=== PATIENT | female | born 1945 | race Caucasian/White ===

== ENCOUNTER 2016-10-21 23:17 | Inpatient (IN) | payer MEDICARE ==
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
--- NOTE | ~2016-10-21 | DS ---
Discharge Summary [place] [id number] [place]. [address] NAME: RUSS GALO : 43 STATUS : DIS IN PAT#: [id number] AGE: 70 ADM/REG DATE : 10/22/16 MR#: [id number] REPORT SERV DATE: 11/06/16 DICTATED BY: JOSEFA KWOK DATE: 11/05/16 REPORT STATUS : Draft TRANSCRIBED BY: SCOTT DATE: 11/05/16 Data Collection from hospitalization DISCHARGE DIAGNOSES: 1. Acute hypercapnic respiratory failure. 2. Chronic respiratory failure - on chronic oxygen. 3. Type 2 diabetes mellitus. 4. Morbid obesity. 5. Restrictive lung disease. 6. Obstructive sleep apnea - noncompliant with CPAP. 7. Hypertension. 8. Depression. 9. History of abnormal PPD skin testing. 10.Diabetic nephropathy. 11.Diabetic neuropathy. 12.Chronic thrombocytopenia. 13.Stage III chronic kidney disease. 14.Anemia secondary to chronic kidney disease. 15.Hypothyroidism. 16.Gastroesophageal reflux disease. 17.Former smoker. CONSULTATIONS: 1. Jhonathan Colindres M.D. 2. Vazquez Church PA-C. PROCEDURES PERFORMED: None. MEDICATIONS: Tylenol 1000 mg every eight hours as needed for fever or pain; Artificial Tears, apply to both eyes twice a day as instructed; aspirin 81 mg daily; Colace 200 mg at bedtime; Zantac 150 mg with breakfast and supper; folic acid 1 mg daily; Neurontin 200 mg at bedtime; Guaifenesin [place] 600 mg twice a day; Isoniazid 900 mg every seven days as instructed; Levaquin 750 mg as instructed; Synthroid 150 mcg before breakfast; Lopressor 25 mg twice a day; Mycostatin apply to the intraabdominal fold topically twice a day; vitamin B6 50 mg daily; rifapentine as instructed; Zoloft 50 mg daily; Zocor 40 mg at bedtime; Deltasone 40 mg with breakfast, Brovana 15 mcg via inhaler twice a day; Pulmicort 1 mg via inhaler twice a day; DuoNeb 3 mL via inhaler every four hours while awake; glucagon 1 mg as needed; glucose tablets three tablets as needed; Robitussin 200 mg every six hours as needed for cough; Senokot one tablet twice a day as needed; Ultram 50 mg daily as needed; Aspercreme applied to sore muscles/joint topically daily as needed; DuoNeb 3 mL via inhaler every two hours as needed; Systane one drop daily; and Icy Hot one application topically with breakfast and supper. CONDITION ON DISCHARGE: Stable. DISPOSITION: The patient was discharged to [facility] on a regular diet with activities as instructed. Discharge Summary [address] [place]. [address] NAME: RUSS GALO : 43 STATUS : DIS IN PAT#: [id number] AGE: 70 ADM/REG DATE : 10/22/16 MR#: [id number] REPORT SERV DATE: 11/06/16 DICTATED BY: JOSEFA KWOK DATE: 11/05/16 REPORT STATUS : Draft TRANSCRIBED BY: SCOTT DATE: 11/05/16 HOSPITAL COURSE: This is a 70-year-old female who was transferred to the emergency room from [facility] at [facility] for lethargy and hypoxia. Apparently, her O2 saturations were in the 70s. She was on antibiotics for a respiratory illness that started a week prior to this admission, and according to the patient, she felt like she was getting better. She had no recollection of the events of the past 24 hours. In the emergency room, her ABGs were checked. She was presently on BiPAP, but was able to communicate. Her EKG showed what appeared to be atrial flutter and incomplete right bundle-branch block, left anterior fascicular block, and nonspecific ST-T changes at 119 beats per minute. She was admitted to the hospital at this time for further evaluation and treatment. Upon admission, she was felt to have acute on chronic respiratory failure with lethargy. She seemed to be at her baseline mentation. ABGs had improved. Pulmonary was consulted to manage her BiPAP. She was going to be restarted on DuoNeb and Pulmicort. Oral steroids would be provided for five days. We would check an ABG off BiPAP. We would use oxygen to keep her O2 saturation at least greater than 92% and hopefully that would only take about 2 to 3 liters. Incentive spirometry was to be performed every shift. Repeat EKG was going to be performed. She was going to be on prednisone. We would use NovoLog sliding scale insulin. For pain, we would consider Tylenol and use a small dose of tramadol once daily. Levothyroxine was going to be continued and we would check a TSH level. Ranitidine was continued as well as senna and Colace. Lovenox would be used for DVT prophylaxis. She is a DNR limited additional intervention code status. She was given reduced dose of gabapentin. We were not going to give her trazodone at this point and we would avoid medications that can contribute to the lethargy. She was seen by Dr. Jhonathan Colindres regarding atrial tachycardia versus atrial flutter. She has had no complaints of chest pain or angina. She denied palpitations or syncope. She does have morbid obesity and is dependent for care with activities of daily living. She denies orthopnea with the use of nocturnal CPAP for obstructive sleep apnea. She does have some chronic lower extremity edema and chronic venous stasis changes. She was now resting comfortably in bed with no complaints. Initial EKG on arrival looked like atrial tachycardia versus atypical atrial flutter with rapid ventricular response and variable conduction and ventricular response of 115 beats per minute. He recommended conservative medical management only with rate control. Rhythm control would be difficult with multiple medical problems. This appears to be in atrial tachycardia versus atypical atrial flutter. Aspirin was continued with DVT prophylaxis for now. Metoprolol would be recommended twice a day, and possible digoxin if needed for additional rate control. She is also seen by Vazquez Church regarding productive cough and acute respiratory failure. His impression included acute on chronic hypoxemic- hypercapnic respiratory failure and acute on chronic bronchitis. The patient has obstructive sleep apnea without CPAP compliance as well as morbid obesity. She had increased significantly with BiPAP therapy. She was going to be rested that day off the BiPAP machine. We would then provide this therapy for her at hour of sleep that evening. We would likely recheck arterial blood gas the following morning. With regard to the patient's acute on chronic bronchitis, we agreed with the current regimen of antibiotics and steroids. We would adjust nebulized medications accordingly and we would attempt to maximize her pulmonary toilets. With regard to her obstructive sleep apnea, she was not currently compliant with noninvasive positive pressure ventilation therapy. Moving forward, this may be a mobility that she would benefit from when she transfers home. The following day, she had no acute complaints. She had no palpitations, chest pain, or increased Discharge Summary [facility] [address] [place]. [address] NAME: RUSS GALO : 43 STATUS : DIS IN PAT#: [id number] AGE: 70 ADM/REG DATE : 10/22/16 MR#: [id number] REPORT SERV DATE: 11/06/16 DICTATED BY: JOSEFA KWOK DATE: 11/05/16 REPORT STATUS : Draft TRANSCRIBED BY: SCOTT DATE: 11/05/16 shortness of breath. O2 was continued as well as bronchodilators and oral prednisone. Her breathing seemed to be at baseline. Her altered mental status had resolved. Her heart rate was in the 90s on telemetry. Aspirin was continued. Medical management was being provided for rate control only. She was encouraged to increase her pulmonary toilet. On 10/24/2016, she was eating and drinking well. She was switched to oral Levaquin. Bronchodilators were continued. Discharge planning was performed. On 10/25/2016, she had no acute complaints. She was tachycardic. She had no Nicole catheter in place. Antibiotics were continued as well as bronchodilators and oral steroids. Discharge instructions were given. Due to her improved and stable condition, she was discharged to [facility] with the above-stated instructions. Information collected by: Janet Colorado I submit the above information as my discharge summary. ERIN/SCOTT Josefa Kwok M.D. / [id number] CC: Marya Hussein M.D. [facility]
--- NOTE | ~2016-10-21 | CN ---
Consultation Report [facility] [address] [place]. [address] NAME: RUSS GALO : 43 STATUS : ADM IN PAT#: [id number] AGE: 70 ADM/REG DATE : 10/22/16 MR#: [id number] REPORT SERV DATE: 10/23/16 DICTATED BY: JHONATHAN HODGES DATE: 10/22/16 REPORT STATUS : Draft TRANSCRIBED BY: MODL DATE: 10/22/16 CARDIOLOGY CONSULTATION DATE OF CONSULTATION: 10/22/2016 CONSULTATION REASON: Atrial tachycardia versus atrial flutter. HISTORY OF PRESENT ILLNESS: Ms. Galo is a 70-year-old female, resident of [facility], [place] with limited additional interventions, who is transferred for altered mental status and acute on chronic hypoxic with hypercarbic respiratory failure and respiratory acidosis. On arrival to the ER, she was lethargic with an initial pH of 7.2, CO2 of 122, and O2 of 88. She was treated with BiPAP and subsequently improved significantly to pH of 7.40 with CO2 of 63 and O2 of 66. With this, she had no complaints of chest pain or angina. She denies palpitations or syncope. She does have morbid obesity and is dependent for care with ADLs. She denies orthopnea with the use of a nocturnal CPAP for obstructive sleep apnea. She does have some chronic lower extremity edema and chronic venous stasis changes. She is now resting comfortably in bed with no complaints. Initial EKG on arrival look like in atrial tachycardia versus in atypical atrial flutter with RVR and a variable conduction and a ventricular response of 115 beats per minute. REVIEW OF SYSTEMS: Pertinent positives and negatives as outlined above, all others negative. PAST MEDICAL HISTORY: 1. Chronic hypoxic respiratory failure, on chronic oxygen supplementation. 2. COPD. 3. Morbid obesity. 4. Obstructive sleep apnea. 5. Hypertension. 6. Diabetes mellitus type 2. 7. Stage II chronic kidney disease, solitary kidney, status post right nephrectomy. 8. Depression. 9. History of abnormal PPD skin testing. MEDICATIONS: Her current home medications are: 1. Aspirin 81 mg daily. 2. Pulmicort as directed. 3. Gabapentin as directed. 4. Guaifenesin as directed. 5. Robitussin as directed. 6. NovoLog insulin. 7. Isoniazid as directed. 8. Synthroid 50 mcg daily. 9. Vitamin B6 supplementation. Consultation Report [facility] [address] [place]. [address] NAME: RUSS GALO : 43 STATUS : ADM IN PAT#: [id number] AGE: 70 ADM/REG DATE : 10/22/16 MR#: [id number] REPORT SERV DATE: 10/23/16 DICTATED BY: JHONATHAN HODGES DATE: 10/22/16 REPORT STATUS : Draft TRANSCRIBED BY: SCOTT DATE: 10/22/16 10.Nystatin topical. 11.Priftin 600 mg once weekly. 12.Zocor 40 mg daily. 13.Zoloft as directed. 14.Zantac b.i.d. 15.Senokot b.i.d. 16.Tramadol 50 mg p.r.n. 17.Trazodone 50 mg q.h.s. 18.Azithromycin as directed. 19.Ceftriaxone as directed. ALLERGIES: INCLUDE LISINOPRIL, WHICH CAUSES ACUTE RENAL FAILURE AND DIPHENHYDRAMINE, WHICH CAUSES ALTERED MENTAL STATUS. SOCIAL HISTORY: She is a resident of [facility]. She is dependent with ADLs due to her morbid obesity and chronic oxygen dependence. She does not currently use tobacco products or illegal drugs. FAMILY HISTORY: No significant family history of premature CAD, cardiomyopathy, or sudden . PHYSICAL EXAMINATION: VITALS: Temperature is afebrile, pulse is 100, respirations 18, blood pressure 120/80. GENERAL: Obese female who is resting comfortably in bed and in no acute distress. HEENT: Sclerae anicteric, mucous membranes moist and without lesions. NECK: No jugular venous distention. No hepatojugular reflux, carotid upstrokes 2+ and symmetric, there are no carotid or subclavian bruit. LUNGS: Moderately decreased breath sounds throughout with no wheezes or crackles. CARDIOVASCULAR: Irregular with distant S1 and S2. No audible S3. No audible murmurs. No parasternal lift. PMI is not palpable. ABDOMEN: Obese, soft, and nontender. Bowel sounds are positive and normoactive. PULSES: Radial and dorsalis pedis pulses are 2+ and symmetric. EXTREMITIES: Warm and with 1-2+ bilateral edema and chronic venous stasis changes. SKIN: No clubbing or cyanosis, no rashes or lesions. IMPRESSION: 1. Atrial tachycardia versus atypical atrial flutter. 2. Acute on chronic hypoxic and hypercarbic respiratory failure. 3. Respiratory acidosis. 4. Morbid obesity. 5. Chronic obstructive pulmonary disease. 6. Obstructive sleep apnea. 7. Hypertension. 8. Diabetes mellitus type 2. 9. Chronic kidney disease, stage II, solitary kidney. Consultation Report [place] [id number] [place]. [address] NAME: RUSS GALO : 43 STATUS : ADM IN PAT#: [id number] AGE: 70 ADM/REG DATE : 10/22/16 MR#: [id number] REPORT SERV DATE: 10/23/16 DICTATED BY: JHONATHAN HODGES. DATE: 10/22/16 REPORT STATUS : Draft TRANSCRIBED BY: SCOTT DATE: 10/22/16 10.Cytopenia. 11.DO NOT RESUSCITATE with limited additional interventions. PLAN: Ms. Galo is now doing much better. Recommend conservative medical management only with rate control. Rhythm control would be difficult with multiple medical problems. This appears to be in atrial tachycardia versus in atypical atrial flutter. Continue aspirin with DVT prophylaxis for now. Recommend metoprolol twice daily and possible digoxin if needed for additional rate control. We will follow with you. REUBEN/SCOTT Jhonathan Hodges M.D. / [id number] CC: Josefa Kwok M.D.
--- NOTE | ~2016-10-21 | PUL ---
[facility] [address] [place]. [address] NAME: RUSS GALO : 43 STATUS : DIS IN PAT#: [id number] AGE: 70 ADM/REG DATE : 10/22/16 MR#: [id number] REPORT SERV DATE: 10/27/16 DICTATED BY: MILTON THORPE DATE: 10/27/16 REPORT STATUS : Draft TRANSCRIBED BY: MODL DATE: 10/27/16 PULMONARY FUNCTION TEST STUDY: Overnight pulse oximetry. FINDINGS: Total recording time is 7 hours 7 minutes. Mean pulse 95. Mean oxygen saturation 95.9%. Total time with an oxygen saturation of less than 88%, 7 minutes 38 seconds, 1.8% of the night. Upon review of the SpO2 curve, the patient has desaturation concerning for sleep apnea. INTERPRETATION: The patient has a positive study with nocturnal hypoxemia. However, outpatient consideration for sleep apnea may be necessary if clinically indicated. HFQ/MODL Milton Thrope MD / [id number] CC: Josefa Kwok M.D.
--- NOTE | ~2016-10-21 | HP ---
History And Physical [place] [id number] [facility] [place]. [address] NAME: RUSS JORDAN : 43 STATUS : ADM IN [facility]#: [id number] AGE: 70 ADM/REG DATE : 10/22/16 MR#: [id number] REPORT SERV DATE: 10/22/16 DICTATED BY: JOSEFA KWOK DATE: 10/22/16 REPORT STATUS : Draft TRANSCRIBED BY: MODSaba DATE: 10/22/16 DATE OF ADMISSION: 10/22/2016 CHIEF COMPLAINT: Altered mental status. HISTORY OF PRESENT ILLNESS: Ms. Jordan is a 70-year-old female, who was transferred to the [place] [facility] [place] for lethargy and hypoxia. Apparently her O2 sats were in the 70s. The patient was on antibiotics for a respiratory illness that started last week and according to the patient, she felt like she was getting better. She has no recollection of the events of the last 24 hours. In the ER, her initial ABG was 7.19, 122, 88, 45.7, and 95% on 4 L. Her last ABG was 7.406, 53.6, 66, and 94.2%. The patient is presently on BiPAP but is able to communicate. MEDICATIONS: Her medications include DuoNeb 4 times a day; Nystatin powder twice daily; Ultram 50 mg q.8 hours; gabapentin 100 in the morning and 300 at bedtime; muscle rub twice daily; trolamine 3 times a day as needed; Robitussin q.6 hours; Tylenol 500 mg two tabs three times a day; trazodone 2.5 tablets at bedtime; Systane drops; simvastatin 40 at bedtime; citrulline 50 mg daily; Senna-Gen 8.6 twice daily as needed; ranitidine 150 mg twice daily; pyridoxine 50 mg 1 tab daily for 12 weeks; Pulmicort twice daily; Priftin 150 mg 6 tabs q. week for 12 weeks; Mucinex 600 mg twice daily; levothyroxine 150 mg daily; INH 100 mg 9 tabs weekly for 12 weeks; GenTeal ointment; folic acid daily; Colace 100 mg at bedtime; and aspirin 81 daily. PAST MEDICAL HISTORY: Significant for morbid obesity with massive lymphedema, chronic respiratory failure on 2 to 3 L of O2 chronically, COPD, restrictive lung disease, sleep apnea not compliant with CPAP, type 2 diabetes with nephropathy and neuropathy, chronic thrombocytopenia, chronic kidney disease stage III with proteinuria and low albumin. She is status post right nephrectomy. Anemia secondary to chronic kidney disease. Hypothyroidism. Gastroesophageal reflux disease. Osteoarthritis. Constipation. Depression. She has latent TB and she is on therapy for that. SOCIAL HISTORY: She is an ex-smoker. She lives with her daughter. FAMILY HISTORY: Noncontributory. REVIEW OF SYSTEMS: No chest pain, shortness of breath, abdominal pain, dysuria, palpitations, and headache. PHYSICAL EXAMINATION: VITAL SIGNS: Temperature 97.8, blood pressure 117/96, pulse 97, respiratory rate 22, and O2 saturation is 96%. GENERAL: She is a morbidly obese elderly woman with BiPAP. HEENT: Normocephalic, atraumatic. Conjunctiva not injected. No scleral icterus. Edentulous. NECK: Supple. CARDIAC: Regular rate and rhythm. No murmur. LUNGS: She has some faint wheezing anteriorly but no wheezing at all posteriorly. She does History And Physical [address] [place]. [address] NAME: RUSS JORDAN : 43 STATUS : ADM IN [facility]#: [id number] AGE: 70 ADM/REG DATE : 10/22/16 MR#: [id number] REPORT SERV DATE: 10/22/16 DICTATED BY: JOSEFA KWOK DATE: 10/22/16 REPORT STATUS : Draft TRANSCRIBED BY: MODSaba DATE: 10/22/16 have generalized decreased breath sounds. ABDOMEN: She is obese. Nicole in place with dark urine. EXTREMITIES: Massive lymphedema with discoloration. NEUROLOGIC: She is alert and oriented x3. Follows commands. Moving all extremities on command. SKIN: No pressure ulcers. LABORATORY EVALUATION: White count is 7.9 with no shift, hemoglobin is 12.9, PT is 14.7. Chemistries: Sodium 144, potassium 4, bicarb 36, chloride 106, BUN 23, creatinine 1, glucose 109, albumin is 2.8, alkaline phosphatase is 23, other liver tests within normal limits. Lactate 0.4. Procalcitonin less than 0.05. Chest x-ray shows stable cardiomegaly, developing venous congestion and bibasilar atelectasis, right greater than left. EKG shows what appears to be A-flutter, incomplete right bundle branch block, left anterior fascicular block and nonspecific ST changes at 119 beats per minute. IMPRESSION AND PLAN: 1. Acute on chronic respiratory failure with lethargy. The patient is at baseline mentation. ABG has improved. Pulmonary has been consulted to manage her BiPAP. We will restart her DuoNeb and Pulmicort. We will do oral steroids for 5 days. We will check an ABG off BiPAP. We will use oxygen to keep her O2 saturation at least greater than 92% and hopefully that will only take about 2 to 3 L. Incentive spirometry every shift. 2. Patient with a latent TB on INH, pyridoxine, and rifapentine. 3. Abnormal EKG. Will repeat her EKG. 4. Diabetes. Diet control. Since she will be on prednisone, we will check a blood glucose q.a.c. and at bedtime, and we will use a NovoLog sliding scale. 5. Pain. Consider Tylenol and just use a small dose of tramadol once daily. 6. Hypothyroidism. Continue levothyroxine and we will check a TSH in a.m. 7. Gastroesophageal reflux disease. We will continue her ranitidine. 8. Constipation. Continue senna and Colace. 9. Dry eyes. Consider her eye lubricants. 10.We will use Lovenox for DVT prophylaxis. 11.The patient is a DNR, limited additional intervention. I have tried repeatedly to reach her daughter, Antonella Kaur, and I have been unsuccessful. I will let the patient know and I have also let our social service director know so that she can also try to reach her as well. I am giving her a reduced dose of gabapentin. I am not going to give her any trazodone and at this point, I will avoid medications that could contribute to lethargy. LMB/MODL Josefa Kwok M.D. / [phone] History And Physical [address] [place]. [address] NAME: RUSS JORDAN : 43 STATUS : ADM IN PAT#: [id number] AGE: 70 ADM/REG DATE : 10/22/16 MR#: [id number] REPORT SERV DATE: 10/22/16 DICTATED BY: JOSEFA KWOK DATE: 10/22/16 REPORT STATUS : Draft TRANSCRIBED BY: MODL DATE: 10/22/16 CC: Josefa Kwok M.D.
[~2016-10-21 23:17] MED LIST: *UNABLE3; ACET500CAP PO; ACTOS15 PO; ALBUTEROL INH; ALIGN PO; ALIGN4 MG PO; ASAB PO; AZO-CRANBERY450 MG OR; AZO-CRANBERY450 MG PO; BACIT TOP; BEN GAY1.25 OZ; CALTRA600D PO; CEFT5 PO; CEPACOL SORE MT; DETROLLA4 PO; DIABETIC PO; DIOV160 PO; DOCUSOFT S100 MG PO; DSS PO; DUONEB INH; DURICEF PO; FERRETTS325 MG PO; FERROUS SULF325 M1 PO; FESO4 PO; FLEXERIL5 MG PO; FLONASE NAS; FLOVENT44 INH; FOLIC PO; GANIDIN NR100 MG/5 M PO; GENTEA2 OPH; GGEXPUD PO; GLUCCHONDR PO; GLUCOTROL5 PO; HALF81 PO; IOPHEN DM NR OR; IRON325 MG PO; KDUR20 PO; KLOR-CON M2020 MEQ PO; L40 PO; LEVOTHROID137 MCG PO; LEVOTHROID150 MCG PO; LEVOTHYROXIN137 MCG PO; LEVOTHYROXIN150 MCG PO; LIDODERM T; LIQUITEARS; LORT7 PO; LORTAB10 PO; MACROBID PO; MAGOX4 PO; MIRALAXPKT PO; MUCINEX600 MG PO; MUSCLE RU3 EX; MUSCLE RU3 TOP; MUSCLE RUB TOP; MVI PO; MYCOSCROI TOP; NEUR100 PO; NEUR300 PO; NORCO1 TA1 PO; NORCO1 TA2 PO; NOVOLOG SC; NYSTATPOW; NYSTATPOW TOP; NYSTOP100000 MG TOP; OYST-CAL500 MG PO; PEP20 PO; PR25 PO; PROAIR HFA INH; PROBIOTIC PO; PROTONIX PO; PROVENT20 INH; PROVENTSOL INH; PROVHFA INH; PULMICORT180 MCG INH; PULRESP.5 INH; RHINOCORT NAS; SENTAB PO; SYMBICORT 160/41 INH INH; SYN.15 PO; SYSTANE OPH; T PO; TEARS PLUS OPH; TESS PO; TRAZ100 PO; TRAZ50 PO; TRAZODONE150 MG PO; VENTOLIN HFA INH; VITAMIN B-12; VITAMIN C100 MG PO; VITAMIN D; VITC500 PO; VOLTAREN1 % TOP; VYTORIN 10/40 T1 TAB PO; XENADERM EX; XENADERM60 GM EX; Z-PAK PO; ZANTAC 150 PO; ZANTAC150 MG PO; ZANTAC25 MG PO; ZOCOR40 PO; ZOFRAN4 PO; ZOL50 PO; [UNRECOGNIZED DRUG - OTHER]; [UNRECOGNIZED DRUG - OTHER] PO; [UNRECOGNIZED DRUG - OTHER] PO; [UNRECOGNIZED DRUG - OTHER] TOP
[2016-10-21 23:46] LABS: BASOPHILS 0.5 %; BASOPHILS ABSOLUTE 0.04 10/3/uL (0.0-0.16); EOSINOPHILS 2.7 %; EOSINOPHILS ABSOLUTE 0.21 10/3/uL (0.0-0.53); ER CBC TAT 0 Hrs 00 Mins; HEMATOCRIT 41.8 % (36.0-48.0); HEMOGLOBIN 12.9 g/dL (12.0-16.0); IMMATURE GRANULOCYTES 0.8 %; IMMATURE GRANULOCYTES ABSOLUTE 0.06 10/3/uL (0.0-0.11); LYMPHOCYTES 22.5 %; LYMPHOCYTES ABSOLUTE 1.77 10/3/uL (0.67-4.30); MEAN CORPUSCULAR HEMOGLOB 30.8 pg (26.0-34.0); MEAN PLATELET VOLUME 11.4 fL (9.2-13.0); MONOCYTES 10.9 %; MONOCYTES ABSOLUTE 0.86 10/3/uL (0.21-1.20); NEUTROPHILS 62.6 %; NEUTROPHILS ABSOLUTE 4.93 10/3/uL (2.02-8.40); PLATELET COUNT 127 10/3/uL (150-400); RBC DISTRIBUTION WIDTH 13.7 % (12.0-16.0); RED CELL COUNT 4.19 10/6/uL (4.0-5.6); WHITE BLOOD CELLS 7.9 10/3/uL (4.5-10.5)
[2016-10-21 23:47] LABS: MEAN CORPUSCULAR VOLUME 99.8 fL (80-100)
[2016-10-21 23:48] LABS: MANUAL DIFF NO %; MEAN CORPUS HGB CONC 30.9 g/dL (32.0-36.0)
[2016-10-21 23:54] LABS: INTERNATIONAL NORMAL RATI 1.2 UNITS (-); PARTIAL THROMBO TIME 35.7 SEC (22.5-37.2); PROTIME (NOT ORD) 14.7 SEC (12.0-14.5)
[2016-10-22 00:04] LABS: ASCORBIC ACID (UR NOT ORDER) NEG (NEG); BILIRUBIN, URINE NEGATIVE (NEG); KETONE, URINE NEGATIVE (NEG); LEUKOCYTE ESTERASE(NOT OR NEG (NEG); NITRITE (URINE) NEG (NEG); WBC (NOT ORDERED) (RFLEX) 2 (0-5)
[2016-10-22 00:07] LABS: BE (BASE EXCESS) 12.6 MEQ/L (0 +/- 2.5); CARBOXYHEMOGLOBIN 2.1 % (0-3); HCO3 (ACTUAL BICARBONATE) 45.7 MEQ/L (23-27); HEMOBLOGIN CONTENT 12.9 G/DL (12-16); INSTRUMENT SERIAL # 8087; METHEMOGLOBIN 0.2 % (0-3); PCO2 (CO2 TENSION) 122 MMHG (35-45); PO2 (O2 TENSION) 88 MMHG (79-93); pH 7.19 (7.37-7.43)
[2016-10-22 00:08] LABS: DEVICE NC; SAMPLE Arterial
[2016-10-22 00:11] LABS: LACTATE 0.4 MMOL/L (0.3-2.4)
[2016-10-22 00:50] LABS: SODIUM, SERUM 144 MMOL/L (135-148)
[2016-10-22 01:56] LABS: PROCALCITONIN <0.05 ng/mL (<0.5)
[2016-10-22 02:19] LABS: A/G RATIO 0.8 (0.7-1.9); ALBUMIN 2.8 G/DL (3.5-5.0); BUN (BLOOD UREA NITROGEN) 23 MG/DL (6-23); CHLORIDE, SERUM 106 MMOL/L (96-112); CO2 (CARBON DIOXIDE) 36 MMOL/L (24-34); GFR AFRICAN AMERICAN 66 ML/MIN (>=60); GFR NON AFRICAN AMERICAN 57 ML/MIN (>=60); GLOBULIN 3.4 G/DL (2.5-4.1); TOTAL PROTEIN 6.2 G/DL (6.0-8.5)
[2016-10-22 02:20] LABS: ALKALINE PHOSPHATASE 23 U/L (45-117); CALCIUM, SERUM 7.6 MG/DL (8.5-10.4); GLUCOSE, SERUM 109 MG/DL (60-99); SGPT(ALT) 16 U/L (5-65); TOTAL BILIRUBIN 0.3 MG/DL (0-1.2)
[2016-10-22 02:33] LABS: SGOT(AST) 18 U/L (5-40)
[2016-10-22 03:08] LABS: BE (BASE EXCESS) 9.5 MEQ/L (0 +/- 2.5); BIPAP 20/8 cm.H2O; HEMOBLOGIN CONTENT 12.7 G/DL (12-16); INSTRUMENT SERIAL # 8087; METHEMOGLOBIN 0.2 % (0-3); PCO2 (CO2 TENSION) 81 MMHG (35-45); PO2 (O2 TENSION) 63 MMHG (79-93); SAMPLE Arterial
[2016-10-22] MEDS ORDERED: DSS PO ×2 (03:53→07:49)
[2016-10-22] MEDS ORDERED: FOLIC PO ×2 (03:53→07:49)
[2016-10-22] MEDS ORDERED: NEUR100 PO ×2 (03:53→07:49)
[2016-10-22] MEDS ORDERED: HALF81 PO (04:02)
[2016-10-22] MEDS ORDERED: NEUR300 PO ×2 (04:31→07:50)
[2016-10-22] MEDS ORDERED: NOVOPEN SC (04:36)
[2016-10-22] MEDS ORDERED: LEVOTHYROXIN150 MCG PO ×2 (04:37)
[2016-10-22] MEDS ORDERED: ZOL50 PO ×2 (04:37→07:51)
[2016-10-22] MEDS ORDERED: ZOCOR40 PO ×2 (04:38→07:51)
[2016-10-22] MEDS ORDERED: TRAZ50 PO ×2 (04:39→07:51)
[2016-10-22] MEDS ORDERED: ZANTAC150 MG PO (04:40)
[2016-10-22] MEDS ORDERED: SYSTANE OPH ×2 (04:40→07:52)
[2016-10-22] MEDS ORDERED: PULRESP.5 INH ×3 (04:41→07:53)
[2016-10-22] MEDS ORDERED: MUCINEX600 MG PO ×2 (04:41→07:52)
[2016-10-22] MEDS ORDERED: [UNRECOGNIZED DRUG - OTHER] (04:43)
[2016-10-22] MEDS ORDERED: [UNRECOGNIZED DRUG - OTHER] TOP (04:43)
[2016-10-22] MEDS ORDERED: VIT B-SIX 50 MG50 MG PO ×3 (04:44→07:54)
[2016-10-22] MEDS ORDERED: INH300 PO (04:49)
[2016-10-22] MEDS ORDERED: [UNRECOGNIZED DRUG - CODE] PO ×2 (04:49→09:05)
[2016-10-22] MEDS ORDERED: PRIFTIN150 MG PO ×2 (04:50→09:05)
[2016-10-22] MEDS ORDERED: NYSTATPOW TOP ×2 (04:51→07:57)
[2016-10-22] MEDS ORDERED: ATROVENTUD INH (04:52)
[2016-10-22] MEDS ORDERED: DUONEB INH (04:55)
[2016-10-22] MEDS ORDERED: T PO ×2 (04:57→09:08)
[2016-10-22] MEDS ORDERED: GGEXPUD PO ×2 (04:57→09:08)
[2016-10-22] MEDS ORDERED: ASPERCREME (04:58)
[2016-10-22] MEDS ORDERED: SENTAB PO ×2 (04:59→09:09)
[2016-10-22] MEDS ORDERED: GENTEA2 OPH ×2 (05:00→09:10)
[2016-10-22] MEDS ORDERED: ULTRAM50 PO ×2 (05:01→09:10)
[2016-10-22] MEDS ORDERED: ASAB PO (07:50)
[2016-10-22] MEDS ORDERED: SYN.15 PO (07:50)
[2016-10-22] MEDS ORDERED: NOVOLOG SC (07:50)
[2016-10-22] MEDS ORDERED: ZANTAC 150 PO (07:52)
[2016-10-22] MEDS ORDERED: ICY HOT TOP (07:53)
[2016-10-22 08:09] LABS: BE (BASE EXCESS) 11.8 MEQ/L (0 +/- 2.5); BIPAP 20/8 cm.H2O; CARBOXYHEMOGLOBIN 2.1 % (0-3); INSTRUMENT SERIAL # 8087; METHEMOGLOBIN 0.2 % (0-3); O2 CONTENT 16.8 VOL% (18-24); OPERATOR ID 14472; PCO2 (CO2 TENSION) 64 MMHG (35-45); PO2 (O2 TENSION) 66 MMHG (79-93); SAMPLE Arterial; pH 7.41 (7.37-7.43)
[2016-10-22] MEDS ORDERED: ROCEPH IM (09:07)
[2016-10-22] MEDS ORDERED: Z-PAK PO (09:07)
[2016-10-22] MEDS ORDERED: GLUCAGEN IM (09:08)
[2016-10-22] MEDS ORDERED: ASPERCREME TOP (09:09)
[2016-10-22 18:17] LABS: CPK 20 U/L (0-200); TROPONIN I 0.02 NG/ML (<0.05)
[2016-10-22 18:19] LABS: CK-MB 1.1 NG/ML
[2016-10-23 06:18] LABS: BASOPHILS 0.2 %; BASOPHILS ABSOLUTE 0.02 10/3/uL (0.0-0.16); EOSINOPHILS 1.1 %; HEMOGLOBIN 12.3 g/dL (12.0-16.0); IMMATURE GRANULOCYTES 0.7 %; IMMATURE GRANULOCYTES ABSOLUTE 0.06 10/3/uL (0.0-0.11); LYMPHOCYTES 23.2 %; LYMPHOCYTES ABSOLUTE 2.02 10/3/uL (0.67-4.30); MEAN CORPUS HGB CONC 31.5 g/dL (32.0-36.0); MEAN CORPUSCULAR HEMOGLOB 30.8 pg (26.0-34.0); MEAN CORPUSCULAR VOLUME 97.5 fL (80-100); MEAN PLATELET VOLUME 11.6 fL (9.2-13.0); MONOCYTES 10.1 %; MONOCYTES ABSOLUTE 0.88 10/3/uL (0.21-1.20); NEUTROPHILS 64.7 %; NEUTROPHILS ABSOLUTE 5.64 10/3/uL (2.02-8.40); PLATELET COUNT 135 10/3/uL (150-400); RBC DISTRIBUTION WIDTH 13.5 % (12.0-16.0); WHITE BLOOD CELLS 8.7 10/3/uL (4.5-10.5)
[2016-10-23 06:19] LABS: MANUAL DIFF NO %
[2016-10-23 06:29] LABS: BUN (BLOOD UREA NITROGEN) 25 MG/DL (6-23); CHLORIDE, SERUM 98 MMOL/L (96-112); CO2 (CARBON DIOXIDE) 37 MMOL/L (24-34); CREATININE 1.19 MG/DL (0.55-1.02); GFR AFRICAN AMERICAN 53 ML/MIN (>=60); GFR NON AFRICAN AMERICAN 46 ML/MIN (>=60); GLUCOSE, SERUM 133 MG/DL (60-99); PHOSPHORUS, SERUM 2.5 MG/DL (2.5-4.5); POTASSIUM, SERUM 4.3 MMOL/L (3.5-5.3); SODIUM, SERUM 139 MMOL/L (135-148)
[2016-10-24 05:49] LABS: BUN (BLOOD UREA NITROGEN) 22 MG/DL (6-23); CALCIUM, SERUM 8.9 MG/DL (8.5-10.4); CHLORIDE, SERUM 99 MMOL/L (96-112); CO2 (CARBON DIOXIDE) 37 MMOL/L (24-34); CREATININE 1.19 MG/DL (0.55-1.02); GFR AFRICAN AMERICAN 53 ML/MIN (>=60); GFR NON AFRICAN AMERICAN 46 ML/MIN (>=60); POTASSIUM, SERUM 4.2 MMOL/L (3.5-5.3); SODIUM, SERUM 141 MMOL/L (135-148)
[2016-10-24 05:52] LABS: GLUCOSE, SERUM 100 MG/DL (60-99)
== END 2016-10-25 16:31 | DRG 189 ==
LOC: ER 23:17 → ER/OF 10-22 04:46 → 6NO 10-22 09:15
PROVIDERS: Internal Medicine Geriatric Medicine; Nurse Practitioner Acute Care; Physician Assistant Medical
PROC: 5A09357 Assistance with Respiratory Ventilation, Less than 24 Consecutive Hours, Continuous Positive Airway Pressure (ICD-10-PCS; principal; 2016-10-22)
DX: J96.21 Acute and chronic respiratory failure with hypoxia (principal); E11.21 Type 2 diabetes mellitus with diabetic nephropathy; E11.22 Type 2 diabetes mellitus with diabetic chronic kidney disease; I45.2 Bifascicular block; I48.4 Atypical atrial flutter; E66.2 Morbid (severe) obesity with alveolar hypoventilation; Z68.42 Body mass index [BMI] 45.0-49.9, adult; R76.11 Nonspecific reaction to tuberculin skin test without active tuberculosis; N18.2 Chronic kidney disease, stage 2 (mild); K21.9 Gastro-esophageal reflux disease without esophagitis; K59.00 Constipation, unspecified; Z99.81 Dependence on supplemental oxygen; J20.9 Acute bronchitis, unspecified; H04.129 Dry eye syndrome of unspecified lacrimal gland; E03.9 Hypothyroidism, unspecified; J96.22 Acute and chronic respiratory failure with hypercapnia; D47.3 Essential (hemorrhagic) thrombocythemia; F32.9 Major depressive disorder, single episode, unspecified; J42 Unspecified chronic bronchitis; Z66 Do not resuscitate; Z90.5 Acquired absence of kidney; Z79.82 Long term (current) use of aspirin; Z96.652 Presence of left artificial knee joint
CPT/HCPCS: 36600; 71010; 80048; 80053; 81001; 82550; 82553; 82805; 82962; 83605; 83735; 84100; 84145; 84484; 85025; 85610; 85730; 87040; 93005; 94640; 94660; 94667; 94668; 94762; 99291; A9270-GY; J1956; J2250; J2405; J2710; J3010